=== PATIENT | female | born 1930 | race Caucasian/White ===

== ENCOUNTER → 2017-06-03 | Outpatient (CLI) | payer MEDICARE, BC ==
[~2017-06-03] MED LIST: ALLEGRA180 MG PO; AMITRIPTYLINE H25 M1 PO; BETIMOL 0.5% OPH5 ML OU; FORTICAL200 IU/ACT NS; LEVOTHYROXINE PO; LUMIGAN 2.5 ML2.5 M1 OP; MIACALCIN NASA3.7 ML NS; NEXIUM PO; PRILOSEC10 MG PO; SYNTHROID0.1 MG/TAB PO; TIMOLOL OPHTHALMIC OP; [UNRECOGNIZED DRUG - OTHER]; [UNRECOGNIZED DRUG - OTHER]; [UNRECOGNIZED DRUG - OTHER]; femara
== END ==
LOC: COL.RAD 10:49
DX: R31.21 Asymptomatic microscopic hematuria (principal); N26.1 Atrophy of kidney (terminal); N28.89 Other specified disorders of kidney and ureter

== ENCOUNTER → 2018-09-27 | Outpatient (CLI) | payer MEDICARE, BC ==
[2018-09-27 16:35] LABS: BASO # 0.1 (0.0-0.2); BASO % 0.8 % (0.0-2.0); EOS # 0.1 (0.0-0.7); EOS % 2.3 % (0-4.0); GRAN # 4.4 (1.4-6.5); GRAN % 70.6 % (42.2-75.2); HEMATOCRIT 42.6 % (37.0-47.0); LYMPH # 1.1 (1.2-3.4); LYMPH % 17.9 % (20.0-51.0); MEAN CELL VOLUME 92 fl (80.0-100.0); MEAN CORPUSCULAR HEMOGLOBIN 33 pg (27.0-31.0); MEAN CORPUSCULAR HGB CONC 35 g/dl (33.0-37.0); MEAN PLATELET VOLUME 9.5 fl (7.4-10.4); MONO # 0.5 (0.1-0.6); MONO % 8.2 % (1.7-9.3); PLATELET COUNT 238 K/mm3 (130-400); RED BLOOD COUNT 4.62 M/mm3 (4.10-5.30); REDCELL DISTRIBUTION WIDTH-CV 11.9 % (11.5-14.5)
[2018-09-27 17:10] LABS: ALANINE AMINOTRANSFERASE 19 U/L (9-52); ALKALINE PHOSPHATASE 67 U/L (50-136); ANION GAP 8 mmol/L (7-16); AST,SGOT 23 U/L (15-37); BILIRUBIN,TOTAL 0.5 mg/dL (0.0-1.0); BLOOD UREA NITROGEN 15 mg/dL (7-17); CALCIUM 9.9 mg/dL (8.4-10.2); CARBON DIOXIDE 30 mmol/L (22-30); CHLORIDE 101 mmol/L (98-107); CREATININE, serum 0.59 mg/dL (0.52-1.25); GLUCOSE 96 mg/dL (74-106); LIPASE 135 U/L (23-300); POTASSIUM 3.9 mmol/L (3.4-5.0); SODIUM 140 mmol/L (137-145); TOTAL PROTEIN 6.7 gm/dL (6.4-8.2)
[2018-09-27 17:22] LABS: TROPONIN-I < 0.012 ng/mL (0.000-0.034)
== END ==
LOC: ZCOL.LAB 16:10
PROVIDERS: Internal Medicine
DX: K30 Functional dyspepsia (principal)